=== PATIENT | female | born 1965 | race Caucasian/White ===

== ENCOUNTER 2016-07-29 17:35 | Emergency (ER) | payer MEDICARE, MEDICAID ==
[2016-07-29 17:35] VITALS: BMI 23.6
[2016-07-29 17:44] VITALS: BP 129/85; PULSE 88; RESP 18; TEMP 97.8; O2SAT 100
--- NOTE | 2016-07-29 18:22 | C.PDOC ---
History Of Present Illness 51 y/o female presents to the ED with complains of itchy red bumps diffusely to bilateral arms, legs and face since sleeping at her niece's home 2 days ago. Pt denies fever, vomiting, diarrhea, chest pain, SOB or any other complaints. Denies recent travel. Time Seen by Provider: 07/29/16 17:47 Chief Complaint (Nursing): Abnormal Skin Integrity History Per: Patient History/Exam Limitations: no limitations Onset/Duration Of Symptoms: Days Current Symptoms Are (Timing): Still Present Quality Of Symptoms: Itching Severity: Moderate Recent travel outside of the [place]: No Past Medical History Reviewed: Historical Data, Nursing Documentation, Vital Signs Vital Signs: Last Vital Signs Temp 97.8 F 07/29/16 17:41 Pulse 88 07/29/16 17:41 Resp 18 07/29/16 18:31 BP 129/85 07/29/16 17:41 Pulse Ox 100 07/29/16 20:04 - Medical History PMH: Diabetes, HIV Family History: States: Unknown Family Hx - Social History Hx Tobacco Use: No Hx Alcohol Use: No Hx Substance Use: Yes (occasionally) - Immunization History Hx Tetanus Toxoid Vaccination: No Hx Influenza Vaccination: Yes Hx Pneumococcal Vaccination: No Review Of Systems Except As Marked, All Systems Reviewed And Found Negative. Constitutional: Negative for: Fever Cardiovascular: Negative for: Chest Pain Respiratory: Negative for: Shortness of Breath Gastrointestinal: Negative for: Vomiting, Diarrhea Skin: Positive for: Rash (bilteral arms, legs and face) Physical Exam - Physical Exam Appears: Non-toxic, No Acute Distress Skin: Warm, Dry, Rash (erythematous papules with excoriations to bilateral arms and legs, no evidence of cellulitis) Head: Atraumatic, Normacephalic Eye(s): bilateral: Normal Inspection Nose: Normal Oral Mucosa: Moist Throat: Normal, No Erythema Neck: Normal ROM, Supple Chest: Symmetrical Cardiovascular: Rhythm Regular, No Murmur Respiratory: Normal Breath Sounds, No Rales, No Rhonchi, No Wheezing Extremity: Normal ROM, No Swelling Extremity: Bilateral: Atraumatic Neurological/Psych: Oriented x3, Normal Speech, Normal Motor Gait: Steady ED Course And Treatment O2 Sat by Pulse Oximetry: 100 (on room air) Pulse Ox Interpretation: Normal Medical Decision Making Medical Decision Making: The rash looks like insect bites with no evidence of cellulitis. Disposition - Disposition Referrals: [facility] [Outside] Disposition: HOME/ ROUTINE Disposition Time: 18:22 Condition: GOOD Additional Instructions: Follow up with the medical doctor within 1-2 days. Return of worsened. 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 - Scribe Statement The provider has reviewed the documentation as recorded by the Yana Patrick All medical record entries made by the Yana were at my direction and personally dictated by me. I have reviewed the chart and agree that the record accurately reflects my personal performance of the history, physical exam, medical decision making, and the department course for this patient. I have also personally directed, reviewed, and agree with the discharge instructions and disposition.
== END 2016-07-29 18:31 | disposition home or self-care (01) ==
LOC: C.ER 17:35
DX: S40.862A Insect bite (nonvenomous) of left upper arm, initial encounter (principal); S40.861A Insect bite (nonvenomous) of right upper arm, initial encounter; S80.862A Insect bite (nonvenomous), left lower leg, initial encounter; S80.861A Insect bite (nonvenomous), right lower leg, initial encounter; W57.XXXA Bitten or stung by nonvenomous insect and other nonvenomous arthropods, initial encounter; Y92.009 Unspecified place in unspecified non-institutional (private) residence as the place of occurrence of the external cause

== ENCOUNTER 2016-08-28 21:26 | Emergency (ER) | payer MEDICAID, MEDICARE ==
[2016-08-28 21:27] VITALS: BMI 23.6
--- NOTE | 2016-08-28 22:18 | C.PDOC ---
History Of Present Illness Patient presents to the ER with a complaint of myalgias, sore throat and a fever. Patient notes she recently began going to the gym again. Denies nausea, vomiting and diarrhea. Time Seen by Provider: 08/28/16 22:18 Chief Complaint (Nursing): Flu-like Symptoms History Per: Patient History/Exam Limitations: no limitations Onset/Duration Of Symptoms: Days Current Symptoms Are (Timing): Still Present Location Of Pain: Throat (Sore), Diffuse Myalgias Sick Contacts (Context): None Associated Symptoms: Fever, Sore Throat, Myalgias. denies: Nausea, Vomiting, Diarrhea Ear Symptoms: Bilateral: None Recent travel outside of the [place]: No Past Medical History Reviewed: Historical Data, Nursing Documentation, Vital Signs Vital Signs: Last Vital Signs Temp 98.2 F 08/29/16 02:18 Pulse 65 08/29/16 02:18 Resp 20 08/29/16 02:18 BP 120/75 08/29/16 02:18 Pulse Ox 98 08/29/16 02:18 - Medical History PMH: Anemia (FE DEFFICIENCY), Depression, Diabetes, HIV Surgical History: No Surg Hx Family History: States: No Known Family Hx - Social History Hx Tobacco Use: No Hx Alcohol Use: No Hx Substance Use: Yes (occasionally) - Immunization History Hx Tetanus Toxoid Vaccination: No Hx Influenza Vaccination: Yes Hx Pneumococcal Vaccination: No Review Of Systems Constitutional: Positive for: Fever ENT: Positive for: Throat Pain Gastrointestinal: Negative for: Nausea, Vomiting, Diarrhea Musculoskeletal: Positive for: Other (Diffuse Myalgias) Skin: Negative for: Rash, Lesions, Jaundice Neurological: Negative for: Weakness Psych: Negative for: Anxiety Physical Exam - Physical Exam Appears: Non-toxic Skin: Warm, Dry Eye(s): bilateral: Normal Inspection Ear(s): Bilateral: Normal Oral Mucosa: Moist Throat: Normal, No Erythema, No Exudate Neck: Supple Chest: Symmetrical, No Tenderness Cardiovascular: Rhythm Regular, No Murmur Respiratory: No Rales, No Rhonchi, No Wheezing Gastrointestinal/Abdominal: Soft, No Tenderness Back: Normal Inspection Extremity: Normal ROM Extremity: Bilateral: Atraumatic, Normal Color And Temperature Neurological/Psych: Oriented x3, Normal Speech, Normal Cognition Gait: Steady ED Course And Treatment - Laboratory Results Result Diagrams: 08/28/16 23:07 08/28/16 23:07 O2 Sat by Pulse Oximetry: 97 (Room air) Pulse Ox Interpretation: Normal Progress Note: Blood work and urinalysis ordered. Toradol and IV fluids administered. Reevaluation Time: 03:00 Reassessment Condition: Improved Disposition Counseled Patient/Family Regarding: Studies Performed, Diagnosis, Need For Followup, Rx Given - Disposition Referrals: [facility] [Outside] [employer] [facility] [Outside] Disposition: HOME/ ROUTINE Disposition Time: 22:18 Condition: FAIR Prescriptions: Nitrofurantoin Macrocrystals [Macrobid] 1 cap PO BID #14 cap Instructions: Urinary Tract Infection in Women (DC) - Clinical Impression Clinical Impression: UTI (lower urinary tract infection) - Scribe Statement The provider has reviewed the documentation as recorded by the Scribe Jose Carlos Joseph All medical record entries made by the Scribe were at my direction and personally dictated by me. I have reviewed the chart and agree that the record accurately reflects my personal performance of the history, physical exam, medical decision making, and the department course for this patient. I have also personally directed, reviewed, and agree with the discharge instructions and disposition.
[2016-08-28] MEDS ORDERED: Sodium Chloride 0.9% 1,000 ML IV ONE (22:33)
[2016-08-28 23:10] LABS: BASO # 0.1 K/uL (0.0-0.2); BASO % 2.4 % (0.0-2.0); EOS % 0.6 % (0.0-4.0); HEMATOCRIT 32.1 % (34.0-47.0); LYMPH % 57.4 % (20.0-40.0); MEAN CELL VOLUME 80.1 fL (81.0-99.0); MEAN CORPUSCULAR HEMOGLOBIN 25.7 pg (27.0-31.0); MEAN PLATELET VOLUME 8.3 fL (7.2-11.7); MONO # 0.5 K/uL (0.0-0.8); MONO % 14.4 % (0.0-10.0); NRBC % 0.1 % (0.0-2.0); RED CELL DISTRIBUTION WIDTH 16.3 % (11.5-14.5); WHITE BLOOD COUNT 3.4 K/uL (4.8-10.8)
[2016-08-28 23:24] LABS: CHLORIDE 98 mmol/L (98-107); SODIUM 131 mmol/L (132-148)
[2016-08-28 23:25] LABS: POTASSIUM 4.4 mmol/L (3.6-5.2)
[2016-08-28 23:27] LABS: ALB/GLOB RATIO 0.9 (1.0-2.1); ALKALINE PHOSPHATASE 97 U/L (38-126); ALT/SGPT 17 U/L (9-52); AST/SGOT 26 U/L (14-36); BILIRUBIN,TOTAL 0.5 mg/dL (0.2-1.3); BLOOD UREA NITROGEN 18 mg/dL (7-17); CALCIUM 8.1 mg/dl (8.6-10.4); CARBON DIOXIDE 23 mmol/L (22-30); GFR AFRICAN-AMERICAN 57; GLUCOSE,RANDOM 289 mg/dL (65-105); TOTAL PROTEIN 7.3 g/dL (6.3-8.3)
[2016-08-28 23:37] LABS: RBC URINE 7 /hpf (0-3); URINE BACTERIA MOD (<OCC); URINE BILIRUBIN NEGATIVE (NEGATIVE); URINE BLOOD 3+ (NEGATIVE); URINE COLOR Yellow (YELLOW); URINE GLUCOSE (UA) 3+ mg/dL (Normal); URINE KETONE NEGATIVE (NEGATIVE); URINE PROTEIN 1+ mg/dL (NEGATIVE); URINE UROBILINOGEN NORMAL mg/dL (0.2-1.0); WBC URINE 36 /hpf (0-5)
[2016-08-28 23:38] LABS: URINE LEUKOCYTE ESTERASE 1+ Leu/uL (Negative)
[2016-08-28] MEDS ORDERED: cefTRIAXone IV 1 gm in Dextros 50 ML IVPB ONE (23:55)
[2016-08-29 02:18] VITALS: BP 120/75; PULSE 65; RESP 20; TEMP 98.2
[2016-08-29 03:02] VITALS: O2SAT 97
== END 2016-08-29 03:05 | disposition home or self-care (01) ==
LOC: C.ER 21:26
DX: N39.0 Urinary tract infection, site not specified (principal)
CPT/HCPCS: 80053; 81001; 82009; 84703; 85025; 96361; 96365; 96375; 99284; J0696; J1885; J7040

== ENCOUNTER 2016-12-08 17:50 | Inpatient (IN) | payer MEDICARE ==
[2016-12-08 17:50] VITALS: BMI 23.6
[2016-12-08 18:58] LABS: BASO # 0.1 K/uL (0.0-0.2); BASO % 1.3 % (0.0-2.0); EOS # 0.1 K/uL (0.0-0.7); EOS % 1.3 % (0.0-4.0); HEMATOCRIT 18.9 % (34.0-47.0); LYMPH # 1.6 K/uL (1.0-4.3); LYMPH % 36.1 % (20.0-40.0); MEAN CORPUSCULAR HEMOGLOBIN 18.4 pg (27.0-31.0); MEAN CORPUSCULAR HGB CONC 28.3 g/dL (33.0-37.0); MEAN PLATELET VOLUME 7.6 fL (7.2-11.7); MONO # 0.5 K/uL (0.0-0.8); MONO % 11.7 % (0.0-10.0); NRBC % 0.5 % (0.0-2.0); WHITE BLOOD COUNT 4.4 K/uL (4.8-10.8)
[2016-12-08 19:10] LABS: ALB/GLOB RATIO 0.8 (1.0-2.1); ALKALINE PHOSPHATASE 95 U/L (38-126); ALT/SGPT 27 U/L (9-52); AST/SGOT 27 U/L (14-36); BILIRUBIN,TOTAL 0.5 mg/dL (0.2-1.3); BLOOD UREA NITROGEN 11 mg/dL (7-17); CALCIUM 8.6 mg/dl (8.6-10.4); CARBON DIOXIDE 20 mmol/L (22-30); CHLORIDE 97 mmol/L (98-107); GFR AFRICAN-AMERICAN > 60; GLUCOSE,RANDOM 326 mg/dL (65-105); POTASSIUM 3.9 mmol/L (3.6-5.2); SODIUM 131 mmol/L (132-148); TOTAL PROTEIN 6.9 g/dL (6.3-8.3)
[2016-12-08] MEDS ORDERED: Sodium Chloride 0.9% 1,000 ML IV ONE (19:11)
--- NOTE | 2016-12-08 19:24 | C.PDOC ---
History Of Present Illness A 51 y/o female with a hx of chronic anemia presents to the ED from the clinic for low blood count. Patient complains of dizziness, weakness, and vaginal bleeding for the past 8 days. Denies any pain at this time. Chief Complaint (Nursing): Abnormal Labs History Per: Patient History/Exam Limitations: no limitations Onset/Duration Of Symptoms: Days (dizziness, weakness, and vaginal bleeding for 8 days. ) Current Symptoms Are (Timing): Still Present Recent travel outside of the [place]: No Past Medical History Vital Signs: Last Vital Signs Temp 98.8 F 12/08/16 21:19 Pulse 91 H 12/08/16 21:19 Resp 20 12/08/16 17:58 BP 138/87 12/08/16 21:19 Pulse Ox 100 12/08/16 21:19 - Medical History PMH: Anemia (FE DEFFICIENCY), Depression, Diabetes, HIV Surgical History: No Surg Hx Family History: States: Unknown Family Hx - Social History Hx Tobacco Use: No Hx Alcohol Use: No Hx Substance Use: Yes (occasionally) - Immunization History Hx Tetanus Toxoid Vaccination: No Hx Influenza Vaccination: Yes Hx Pneumococcal Vaccination: No Review Of Systems Constitutional: Positive for: Weakness. Negative for: Fever Cardiovascular: Negative for: Chest Pain, Palpitations Respiratory: Negative for: Shortness of Breath Gastrointestinal: Negative for: Nausea, Vomiting, Diarrhea Genitourinary: Positive for: Vaginal Bleeding Neurological: Positive for: Weakness, Dizziness Physical Exam - Physical Exam Appears: Well, Non-toxic Skin: Normal Color, Warm, Dry Head: Atraumatic, Normacephalic Eye(s): bilateral: Conjunctiva Pale (slightly) Oral Mucosa: Moist Chest: Symmetrical Cardiovascular: Rhythm Regular, No Murmur Respiratory: Normal Breath Sounds, No Rales, No Rhonchi, No Wheezing Gastrointestinal/Abdominal: Soft, No Tenderness Extremity: Normal ROM (x4) Neurological/Psych: Oriented x3 (alert and oriented x3) ED Course And Treatment - Laboratory Results Result Diagrams: 12/08/16 18:55 12/08/16 18:55 ECG: Interpreted By Me, Viewed By Me ECG Rhythm: Sinus Rhythm ECG Interpretation: Normal, No Acute Changes Interpretation Of ECG: NSR, normal tracings Rate From EC O2 Sat by Pulse Oximetry: 100 (Room air) Pulse Ox Interpretation: Normal Progress Note: Blood work, UA/Urine culture, EKG, and CXR ordered; IV fluids and insulin administered. Disposition Discussed With Dr.: Adams Eddy Doctor Will See Patient In The: Hospital Counseled Patient/Family Regarding: Diagnosis - Disposition Disposition: HOSPITALIZED Disposition Time: 20:19 Condition: STABLE - POA Present On Arrival: None - Clinical Impression Clinical Impression: Severe anemia, Diabetes mellitus - Scribe Statement The provider has reviewed the documentation as recorded by the Scribajit Brandon All medical record entries made by the Phillipibajit were at my direction and personally dictated by me. I have reviewed the chart and agree that the record accurately reflects my personal performance of the history, physical exam, medical decision making, and the department course for this patient. I have also personally directed, reviewed, and agree with the discharge instructions and disposition.
[2016-12-08] MEDS ORDERED: (Novolin R) Insulin Human Regular 100 units/ml vial SC ONE (19:26)
[2016-12-08] MEDS ORDERED: (Novolin R) Insulin Human Regular 100 units/ml vial ONE (19:48)
[2016-12-08] MEDS ORDERED: Sodium Chloride 0.9% 1,000 ML ONE (19:48)
[2016-12-08 20:26] LABS: IRON 30 ug/dL (37-170)
[2016-12-08 20:42] LABS: RBC URINE 7 /hpf (0-3); URINE BILIRUBIN NEGATIVE (NEGATIVE); URINE BLOOD 1+ (NEGATIVE); URINE COLOR Yellow (YELLOW); URINE GLUCOSE (UA) 3+ mg/dL (Normal); URINE KETONE NEGATIVE (NEGATIVE); URINE LEUKOCYTE ESTERASE 1+ Leu/uL (Negative); URINE PROTEIN NEGATIVE (NEGATIVE); URINE UROBILINOGEN NORMAL mg/dL (0.2-1.0); WBC URINE 8 /hpf (0-5)
[2016-12-08 20:43] LABS: URINE BACTERIA MOD (<OCC)
[2016-12-08 21:09] LABS: FOLATE 19.8 ng/mL
[2016-12-09] MEDS ORDERED: Insulin Detemir 100 units/ml Vial (Levemir) SC ONE (00:30)
--- NOTE | 2016-12-09 01:50 | CP.PCM.HP ---
<Deb Martin - Last Filed: 12/09/16 01:42> History of Present Illness - History of Present Illness History of Present Illness: HPI: Patient is a 51F with PMH HIV, DM, and iron deficiency anemia who presents to the ED for blood transfusion. Patient says she was at the clinic for a PAP smear and was told that she was severely anemic and needed to go to the ED for transfusion. Patient says her last menstrual period lasted longer than usual and was 8 days of heavy bleeding that ended 2 days ago. Patient says her periods are usually every 1.5 months, lasting 5-6 days, without heavy flow. She states that she has had some vaginal discharge but this is normal for her and denies change in color or odor. Patient says she has been feeling tired and has recently gained some weight. Patient also c/o dysuria but no frequency or urgency. Patient denies F/C, CP/SOB, Melena/Hematochezia, flank pain, AP/N/V/D/ C. 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 Present on Admission - Present on Admission Any Indicators Present on Admission: No Review of Systems - Review of Systems All systems: reviewed and no additional remarkable complaints except (As per HPI ) - Hematologic/Lymphatic Additional comments: As per HPI Past Patient History - Infectious Disease Hx of Infectious Diseases: None - Tetanus Immunizations Tetanus Immunization: Unknown - Past Social History Smoking Status: Former Smoker - ENDOCRINE/METABOLIC Hx Diabetes Mellitus Type 2: Yes - HEMATOLOGICAL/ONCOLOGICAL Hx Anemia: Yes (FE DEFFICIENCY) Hx Human Immunodeficiency Virus (HIV): Yes - PSYCHIATRIC Hx Depression: Yes Hx Substance Use: Yes (occasionally) - SURGICAL HISTORY Hx Surgeries: Yes Hx Tubal Ligation: Yes (1990) - ANESTHESIA Hx Anesthesia: Yes Hx Anesthesia Reactions: No Hx Malignant Hyperthermia: No Meds Allergies/Adverse Reactions: Allergies Allergy/AdvReac Type Severity Reaction Status Date / Time sulfamethoxazole Allergy Verified 07/29/16 17:39 [From Bactrim] trimethoprim [From Bactrim] Allergy Verified 07/29/16 17:39 Physical Exam - Constitutional Appears: Non-toxic, No Acute Distress - Head Exam Head Exam: NORMAL INSPECTION - Eye Exam Eye Exam: EOMI - ENT Exam ENT Exam: Mucous Membranes Moist - Respiratory Exam Respiratory Exam: Clear to Auscultation Bilateral, NORMAL BREATHING PATTERN - Cardiovascular Exam Cardiovascular Exam: REGULAR RHYTHM, +S1, +S2 - GI/Abdominal Exam GI & Abdominal Exam: Normal Bowel Sounds, Soft. absent: Distended, Tenderness - Exam Speculum exam: NORMAL SPECULUM EXAM, Vaginal Discharge (minimal white discharge without foul odor ). absent: Erythema Bimanual exam: NORMAL BIMANUAL EXAM. absent: Adenexal Mass, Cervical Motion Tendernes - Extremities Exam Extremities exam: Positive for: normal inspection, pedal pulses present. Negative for: pedal edema, tenderness - Neurological Exam Neurological exam: Alert, Oriented x3 - Psychiatric Exam Psychiatric exam: Normal Affect, Normal Mood - Skin Skin Exam: Dry, Intact, Warm Results - Vital Signs Recent Vital Signs: Last Vital Signs Temp 98.9 F 12/09/16 01:03 Pulse 87 12/09/16 01:03 Resp 20 12/09/16 01:03 BP 129/78 12/09/16 01:03 Pulse Ox 98 12/09/16 00:00 - Labs Result Diagrams: 12/08/16 18:55 12/08/16 18:55 Labs: Laboratory Results - last 24 hr 12/08/16 20:29 Urine Color Yellow Urine Clarity Hazy Urine pH 5.0 Ur Specific [place] 1.012 Urine Protein Negative Urine Glucose (UA) 3+ H Urine Ketones Negative Urine Blood 1+ H Urine Nitrate Negative Urine Bilirubin Negative Urine Urobilinogen Normal Ur Leukocyte Esterase 1+ H Urine WBC (Auto) 8 H Urine RBC (Auto) 7 H Ur Squamous Epith Cells < 1 Urine Bacteria Mod H Assessment & Plan - Assessment and Plan (Free Text) Assessment: Anemia * H&H: 5.3 & 18.9 * Iron studies: iron 30, TIBC 362, % Sat 8 * Tranfusion x2 * F/U stool occult blood * Consult GI (Malik) - recs appreciated * Ferrous sulfate 325 mg PO QD * ECG & CXR Menorrhagia * Consult ObGyn (Justin) - recs appreciated * F/U pelvic US * F/U urine HCG Dysuria * F/U UA and culture Hx DM * Levemir 15 U once * Novalog 70/30 15 U BIDAC Hx HIV * F/U home meds * 10/12/15 CD4: 224 Prophylaxis * Protonix 40 mg PO QD * SCDs <Adams Eddy P - Last Filed: 12/09/16 08:08> Results - Vital Signs Recent Vital Signs: Last Vital Signs Temp 98.2 F 12/09/16 04:50 Pulse 86 12/09/16 04:50 Resp 20 12/09/16 04:50 BP 141/83 12/09/16 04:50 Pulse Ox 98 12/09/16 00:00 - Labs Result Diagrams: 12/09/16 07:37 12/09/16 07:37 Labs: Laboratory Results - last 24 hr 12/08/16 12/09/16 12/09/16 20:29 01:24 04:30 WBC RBC Hgb Hct MCV MCH MCHC RDW Plt Count MPV Sodium Potassium Chloride Carbon Dioxide Anion Gap BUN Creatinine Est GFR ( Amer) Est GFR (Non-Af Amer) POC Glucose (mg/dL) 336 H Random Glucose Calcium Phosphorus Magnesium Total Bilirubin AST ALT Alkaline Phosphatase Total Protein Albumin Globulin Albumin/Globulin Ratio Urine Color Yellow Urine Clarity Hazy Urine pH 5.0 Ur Specific [place] 1.012 Urine Protein Negative Urine Glucose (UA) 3+ H Urine Ketones Negative Urine Blood 1+ H Urine Nitrate Negative Urine Bilirubin Negative Urine Urobilinogen Normal Ur Leukocyte Esterase 1+ H Urine WBC (Auto) 8 H Urine RBC (Auto) 7 H Ur Squamous Epith Cells < 1 Urine Bacteria Mod H Urine HCG, Qual Negative 12/09/16 12/09/16 12/09/16 07:13 07:37 07:37 WBC 5.5 RBC 3.49 L Hgb 8.3 L D Hct 26.8 L MCV 76.6 L D MCH 23.8 L MCHC 31.1 L RDW 25.6 H Plt Count 310 MPV 7.8 Sodium 135 Potassium 3.8 Chloride 99 Carbon Dioxide 24 Anion Gap 16 BUN 10 Creatinine 0.8 Est GFR ( Amer) > 60 Est GFR (Non-Af Amer) > 60 POC Glucose (mg/dL) 213 H Random Glucose 179 H Calcium 9.1 Phosphorus 3.5 Magnesium 1.6 Total Bilirubin 0.7 AST 23 ALT 18 Alkaline Phosphatase 103 Total Protein 7.2 Albumin 3.1 L Globulin 4.1 H Albumin/Globulin Ratio 0.8 L Urine Color Urine Clarity Urine pH Ur Specific [place] Urine Protein Urine Glucose (UA) Urine Ketones Urine Blood Urine Nitrate Urine Bilirubin Urine Urobilinogen Ur Leukocyte Esterase Urine WBC (Auto) Urine RBC (Auto) Ur Squamous Epith Cells Urine Bacteria Urine HCG, Qual Attending/Attestation - Attestation I have personally seen and examined this patient.: Yes I have fully participated in the care of the patient.: Yes I have reviewed all pertinent clinical information: Yes Notes (Text): Iron deficiency anemia with symptoms of being tired, but not of acute loss, low MCV, suggest anemia of longer duration unlikely to be only from 1wk of menorrhagia, hence may need gi work up. H/o HIV, unknown CD4, on meds. Not well controlled type 2 dm on insulin. 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
--- NOTE | 2016-12-09 03:17 | CP.PCM.CON ---
History of Present Illness - History of Present Illness History of Present Illness: Called to see Pt currently for transfusion secondary to severe anemia. Review of Systems - Reproductive: Female Reproductive:Female: Heavy Menses, Abnormal Vaginal Bleeding - Menstruation Menstruation: Menses >/= 8 Days Past Patient History - Infectious Disease Hx of Infectious Diseases: None - Tetanus Immunizations Tetanus Immunization: Unknown - Past Medical History & Family History Past Medical History?: Yes - Past Social History Smoking Status: Former Smoker - CARDIAC Hx Cardiac Disorders: No - PULMONARY Hx Respiratory Disorders: Yes Hx Asthma: Yes Hx Bronchitis: No Hx Chronic Obstructive Pulmonary Disease (COPD): No Hx Emphysema: No Hx Lung Cancer: No Hx Pneumonia: No Hx Pulmonary Edema: No Hx Pulmonary Embolism: No Hx Respiratory Aspiration: No Hx Respiratory Tract Infection: No Hx Sleep Apnea: No Hx Tuberculosis: No - NEUROLOGICAL Hx Neurological Disorder: No - HEENT Hx HEENT Problems: No - RENAL Hx Chronic Kidney Disease: No - ENDOCRINE/METABOLIC Hx Endocrine Disorders: Yes Hx Adrenal Cancer: No Hx Diabetes Insipidus: No Hx Diabetes Mellitus Type 1: No Hx Diabetes Mellitus Type 2: Yes Hx Hyperthyroidism: No Hx Hypothyroidism: No Hx Systemic Lupus Erythematosus: No - HEMATOLOGICAL/ONCOLOGICAL Hx Blood Disorders: Yes Hx AIDS: No Hx Anemia: Yes (FE DEFFICIENCY) Hx Blood Transfusions: Yes Hx Blood Transfusion Reaction: No Hx Bruising: No Hx Cancer: No Hx Chemotherapy: No Hx Cirrhosis: No Hx Gum Bleeding: No Hx Hemophilia: No Hx Hepatitis A: No Hx Hepatitis B: No Hx Hepatitis C: No Hx Human Immunodeficiency Virus (HIV): Yes Hx Leukemia: No Hx Metastesis: No Hx Shingles: No Hx Sickle Cell Disease: No Hx Unexplained Bleeding: No Hx von Willebrand's Disease: No - INTEGUMENTARY Hx Dermatological Problems: No - MUSCULOSKELETAL/RHEUMATOLOGICAL Hx Musculoskeletal Disorders: No - GASTROINTESTINAL Hx Gastrointestinal Disorders: No - GENITOURINARY/GYNECOLOGICAL Hx Genitourinary Disorders: Yes Hx Bladder Cancer: No Hx Bladder Stone: No Hx Cervical Cancer: No Hx Hematuria: No Hx Incontinence: No Hx Ovarian Cancer: No Hx Postmenopausal Bleeding: No Hx Reproductive Disorders: No Hx Sexually Transmitted Disorders: Yes (HIV) Hx Uterine Cancer: No Hx Urinary Tract Infection: Yes - PSYCHIATRIC Hx Psychophysiologic Disorder: Yes Hx Anxiety: No Hx Bipolar Disorder: No Hx Depression: Yes Hx Emotional Abuse: No Hx Hallucinations: No Hx Panic Symptoms: No Hx Paranoia: No Hx Post Traumatic Stress Disorder: No Hx Psychosis: No Hx Physical Abuse: No Hx Schizophrenia: No Hx Sexual Abuse: No Hx Substance Use: Yes (occasionally) - SURGICAL HISTORY Hx Surgeries: Yes Hx Abdominal Aortic Aneurysm Repair: No Hx Amputation: No Hx Angiogram: No Hx Angioplasty: No Hx Appendectomy: No Hx Arteriovenous Shunt: No Hx Arthroscopy: No Hx Bile Duct Stent: No Hx Breast Biopsy: No Hx Cataract Extraction: No Hx Cardiac Catheterization: No Hx Carotid Endarterectomy: No Hx Section: No Hx Cholecystectomy: No Hx Coronary Artery Bypass Graft: No Hx Coronary Stent: No Hx Dilation and Curettage: No Hx Eye Surgery: No Hx Femoral-Popliteal Bypass Graft: No Hx Gastric Bypass Surgery: No Hx Herniorrhaphy: No Hx Hysterectomy: No Hx Joint Replacement: No Hx Kidney Transplant: No Hx Liver Transplant: No Hx Mastectomy: No Hx Musculoskeletal Surgery: No Hx Open Heart Surgery: No Hx Open Reduction Internal Fixation: No Hx Orthopedic Surgery: No Hx Parathyroidectomy: No Hx Penile Implant: No Hx Pulmonary Surgery: No Hx Splenectomy: No Hx Thyroidectomy: No Hx Tonsillectomy: No Hx Tubal Ligation: Yes (1990) Hx Valve Replacement: No Hx Vascular Surgery: No Hx Vascular Access Device: No - ANESTHESIA Hx Anesthesia: Yes Hx Anesthesia Reactions: No Hx Malignant Hyperthermia: No Has any member of the family had a problem w/ anesthesia?: No Meds Allergies/Adverse Reactions: Allergies Allergy/AdvReac Type Severity Reaction Status Date / Time sulfamethoxazole Allergy Verified 07/29/16 17:39 [From Bactrim] trimethoprim [From Bactrim] Allergy Verified 07/29/16 17:39 - Medications Medications: Current Medications Ferrous Sulfate (Feosol) 325 mg PO DAILY STANISLAW Sodium Chloride (Sodium Chloride 0.9%) 1,000 mls @ 100 mls/hr IV .Q10H ONE Stop: 12/09/16 05:10 Last Admin: 12/08/16 20:10 Dose: 100 mls/hr Insulin Aspart (Novolog Mix 70/30 (70/30 Units/Ml)) 8 units SC BIDAC STANISLAW Pantoprazole Sodium (Protonix Ec Tab) 40 mg PO DAILY STANISLAW Results - Vital Signs Recent Vital Signs: Last Vital Signs Temp 98.3 F 12/09/16 02:38 Pulse 82 12/09/16 02:38 Resp 20 12/09/16 02:38 BP 129/77 12/09/16 02:38 Pulse Ox 98 12/09/16 00:00 - Labs Result Diagrams: 12/08/16 18:55 12/08/16 18:55 Labs: Laboratory Results - last 24 hr 12/08/16 12/09/16 20:29 01:24 POC Glucose (mg/dL) 336 H Urine Color Yellow Urine Clarity Hazy Urine pH 5.0 Ur Specific [place] 1.012 Urine Protein Negative Urine Glucose (UA) 3+ H Urine Ketones Negative Urine Blood 1+ H Urine Nitrate Negative Urine Bilirubin Negative Urine Urobilinogen Normal Ur Leukocyte Esterase 1+ H Urine WBC (Auto) 8 H Urine RBC (Auto) 7 H Ur Squamous Epith Cells < 1 Urine Bacteria Mod H Assessment & Plan (1) Menorrhagia Status: Acute (2) Severe anemia Status: Acute - Assessment and Plan (Free Text) Plan: Will await the results of pelvic ultrasound. Recommend endometrial biopsy upon discharge and stabilization
[2016-12-09 07:51] LABS: HEMATOCRIT 26.8 % (34.0-47.0); MEAN CORPUSCULAR HEMOGLOBIN 23.8 pg (27.0-31.0); MEAN CORPUSCULAR HGB CONC 31.1 g/dL (33.0-37.0); MEAN PLATELET VOLUME 7.8 fL (7.2-11.7); RED CELL DISTRIBUTION WIDTH 25.6 % (11.5-14.5); WHITE BLOOD COUNT 5.5 K/uL (4.8-10.8)
[2016-12-09 07:55] LABS: ALB/GLOB RATIO 0.8 (1.0-2.1); ALKALINE PHOSPHATASE 103 U/L (38-126); ALT/SGPT 18 U/L (9-52); AST/SGOT 23 U/L (14-36); BILIRUBIN,TOTAL 0.7 mg/dL (0.2-1.3); BLOOD UREA NITROGEN 10 mg/dL (7-17); CALCIUM 9.1 mg/dl (8.6-10.4); CARBON DIOXIDE 24 mmol/L (22-30); CHLORIDE 99 mmol/L (98-107); GFR AFRICAN-AMERICAN > 60; GLUCOSE,RANDOM 179 mg/dL (65-105); MAGNESIUM 1.6 mg/dL (1.6-2.3); PHOSPHOROUS 3.5 mg/dL (2.5-4.5); POTASSIUM 3.8 mmol/L (3.6-5.2); SODIUM 135 mmol/L (132-148); TOTAL PROTEIN 7.2 g/dL (6.3-8.3)
[2016-12-09 07:56] LABS: MEAN CELL VOLUME 76.6 fL (81.0-99.0)
[2016-12-09] MEDS: (Novolog Mix 70/30) Insulin Aspart/Insulin Aspar 100 units/ml SC SCH ×2 (08:40→16:56)
[2016-12-09] MEDS: Pantoprazole 40 mg EC Tab PO SCH (09:27)
--- NOTE | 2016-12-09 10:42 | US ---
HISTORY: menorrhagia COMPARISON: None available. TECHNIQUE: Transabdominal and transvaginal FINDINGS: UTERUS: Measures 10.3 x 5.4 x 7.4 cm. Normal in size and appearance. No fibroid or other mass lesion seen. ENDOMETRIUM: Measures 4 mm in diameter. Unremarkable. CERVIX: No cervical abnormality identified. RIGHT OVARY: Measures 3.3 x 2.7 x 2.8 cm. No solid mass. Normal flow. Simple right ovarian cyst, 1.4 x 1.5 x 1.9 cm. Please correlate with menopausal status. LEFT OVARY: Measures 2.9 x 1.2 x 2.9 cm. No solid mass. Normal flow. FREE FLUID: No significant free fluid noted. OTHER FINDINGS: None. IMPRESSION: Unremarkable endometrium. 1.9 cm right ovarian cyst. Likely physiologic. Please correlate with menopausal status.
--- NOTE | 2016-12-09 11:12 | RAD ---
HISTORY: GI Bleeding COMPARISON: No prior. TECHNIQUE: Chest PA and lateral FINDINGS: LUNGS: No active pulmonary disease. PLEURA: No significant pleural effusion identified. No pneumothorax apparent. CARDIOVASCULAR: Normal. OSSEOUS STRUCTURES: No significant abnormalities. VISUALIZED UPPER ABDOMEN: Normal. OTHER FINDINGS: None. IMPRESSION: No active disease.
--- NOTE | 2016-12-09 15:00 | CP.PCM.PN ---
<Chencho Sheikh - Last Filed: 12/09/16 16:42> Subjective - Date & Time of Evaluation Date of Evaluation: 12/09/16 Time of Evaluation: 14:57 - Subjective Subjective: PGY1 Note for Dr. Desir HPI: Patient seen and examined at bedside. Doing well with no complaints at this time. Feels much better after the transfusion. No longer feels dizzy. States she does not think she is menopausal. 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 Does not have any chest pain or SOB. Denies N/V/D/F Objective - Vital Signs/Intake and Output Vital Signs (last 24 hours): Temp Pulse Resp BP Pulse Ox 98.6 F 80 20 147/81 95 12/09/16 08:30 12/09/16 08:30 12/09/16 08:30 12/09/16 08:30 12/09/16 08:30 Intake and Output: 12/09/16 12/09/16 06:59 18:59 Intake Total 975 Output Total 0 Balance 975 - Medications Medications: Current Medications Ferrous Sulfate (Feosol) 325 mg PO DAILY [facility] Last Admin: 12/09/16 09:27 Dose: 325 mg Insulin Aspart (Novolog Mix 70/30 (70/30 Units/Ml)) 8 units SC BIDAC [facility] Last Admin: 12/09/16 08:40 Dose: 8 units Insulin Detemir (Levemir) 15 unit SC HS [facility] Pantoprazole Sodium (Protonix Ec Tab) 40 mg PO DAILY [facility] Last Admin: 12/09/16 09:27 Dose: 40 mg - Labs Labs: 12/09/16 07:37 12/09/16 07:37 PT 11.6 SECONDS (9.7-12.2) 12/08/16 19:39 INR 1.0 12/08/16 19:39 APTT 27 SECONDS (21-34) 12/08/16 19:39 - Constitutional Appears: Well, Non-toxic, No Acute Distress - Head Exam Head Exam: ATRAUMATIC, NORMAL INSPECTION, NORMOCEPHALIC - ENT Exam ENT Exam: Mucous Membranes Moist - Respiratory Exam Respiratory Exam: Clear to Ausculation Bilateral, NORMAL BREATHING PATTERN - Cardiovascular Exam Cardiovascular Exam: REGULAR RHYTHM - GI/Abdominal Exam GI & Abdominal Exam: Soft, Normal Bowel Sounds. absent: Distended, Tenderness - Extremities Exam Extremities Exam: absent: Joint Swelling, Tenderness - Neurological Exam Neurological Exam: Alert, Awake, Oriented x3 - Psychiatric Exam Psychiatric exam: Normal Affect, Normal Mood - Skin Skin Exam: Dry, Intact, Normal Color, Warm Assessment and Plan - Assessment and Plan (Free Text) Assessment: Anemia * If Hgb remains stable tomorrow, will D/c home * Hgb 8.3 * Iron studies: iron 30, TIBC 362, % Sat 8 * Tranfusion x2 * Stool occult blood - Negative * Consult GI (Malik) - F/U Reccs * Ferrous sulfate 325 mg PO QD Menorrhagia * Consult ObGyn ([facility]) * Endometrial bx as outpatient * pelvic US - unremarkable * urine HCG = negative UTI * Gram negative geoff * Rochepin 1g IM QD Hx DM * Levemir 15 U once * Novalog 70/30 15 U BIDAC Hx HIV * * 10/12/15 CD4: 224 Prophylaxis * Protonix 40 mg PO QD * Nicole <Balta Desir - Last Filed: 12/09/16 18:47> Objective - Vital Signs/Intake and Output Vital Signs (last 24 hours): Temp Pulse Resp BP Pulse Ox 98.4 F 79 20 139/85 97 12/09/16 15:00 12/09/16 15:00 12/09/16 15:00 12/09/16 15:00 12/09/16 15:00 Intake and Output: 12/09/16 12/09/16 06:59 18:59 Intake Total 975 500 Output Total 0 Balance 975 500 - Medications Medications: Current Medications Acetaminophen (Tylenol 325mg Tab) 650 mg PO Q6 PRN PRN Reason: Pain, moderate (4-7) Last Admin: 12/09/16 16:12 Dose: 650 mg Ferrous Sulfate (Feosol) 325 mg PO DAILY [facility] Last Admin: 12/09/16 09:27 Dose: 325 mg Insulin Aspart (Novolog Mix 70/30 (70/30 Units/Ml)) 8 units SC BIDAC [facility] Last Admin: 12/09/16 16:56 Dose: 8 units Insulin Detemir (Levemir) 15 unit SC HS [facility] Pantoprazole Sodium (Protonix Ec Tab) 40 mg PO DAILY [facility] Last Admin: 12/09/16 09:27 Dose: 40 mg - Labs Labs: 12/09/16 07:37 12/09/16 07:37 PT 11.6 SECONDS (9.7-12.2) 12/08/16 19:39 INR 1.0 12/08/16 19:39 APTT 27 SECONDS (21-34) 12/08/16 19:39 Attending/Attestation - Attestation I have personally seen and examined this patient.: Yes I have fully participated in the care of the patient.: Yes I have reviewed all pertinent clinical information, including history, physical exam and plan: Yes Notes (Text): 12/09/16 18:41 Medical attending: Patient was seen and examined by me, agree with the above note by registered medical assistant. The patient explains that her most recent menstrual period came at the normal time however this time it was excessive bleeding with notable clots she had to use multiple pads much more than usual She had 2 units of PRBCs given overnight, her hemoglobin is higher now. The patient reports that she feels significantly better than when she came in. She denies having any chest pain or shortness of breath at this moment. She also had a pelvic ultrasound, it did not show any acute findings. So at this time if her hemoglobin remained stable consider discharging the patient tomorrow but will have to see Thank you very much, Balta Desir
[2016-12-09] MEDS ORDERED: Insulin Detemir 100 units/ml Vial (Levemir) SC SCH (22:00)
[2016-12-10 00:45] VITALS: O2SAT 98
[2016-12-10] MEDS: (Novolog Mix 70/30) Insulin Aspart/Insulin Aspar 100 units/ml SC SCH (08:25)
[2016-12-10 08:37] VITALS: BP 144/91; PULSE 67; RESP 20; TEMP 98.2
[2016-12-10 08:38] LABS: BASO # 0.1 K/uL (0.0-0.2); BASO % 1.4 % (0.0-2.0); EOS # 0.2 K/uL (0.0-0.7); EOS % 3.6 % (0.0-4.0); HEMATOCRIT 28.9 % (34.0-47.0); LYMPH # 1.8 K/uL (1.0-4.3); LYMPH % 36.7 % (20.0-40.0); MEAN CORPUSCULAR HEMOGLOBIN 21.7 pg (27.0-31.0); MEAN CORPUSCULAR HGB CONC 30.3 g/dL (33.0-37.0); MEAN PLATELET VOLUME 8.1 fL (7.2-11.7); MONO # 0.4 K/uL (0.0-0.8); MONO % 8.8 % (0.0-10.0); NRBC % 0.3 % (0.0-2.0); RED CELL DISTRIBUTION WIDTH 25.2 % (11.5-14.5)
[2016-12-10 08:41] LABS: MEAN CELL VOLUME 71.5 fL (81.0-99.0)
[2016-12-10 08:45] LABS: CHLORIDE 101 mmol/L (98-107)
[2016-12-10 08:46] LABS: POTASSIUM 4.6 mmol/L (3.6-5.2); SODIUM 133 mmol/L (132-148)
[2016-12-10 08:48] LABS: ALB/GLOB RATIO 0.9 (1.0-2.1); BILIRUBIN,TOTAL 0.5 mg/dL (0.2-1.3); CARBON DIOXIDE 23 mmol/L (22-30); GFR AFRICAN-AMERICAN > 60; TOTAL PROTEIN 7.5 g/dL (6.3-8.3)
[2016-12-10 08:49] LABS: ALKALINE PHOSPHATASE 110 U/L (38-126); ALT/SGPT 21 U/L (9-52); AST/SGOT 24 U/L (14-36); BLOOD UREA NITROGEN 18 mg/dL (7-17); CALCIUM 8.6 mg/dl (8.6-10.4); GLUCOSE,RANDOM 326 mg/dL (65-105); MAGNESIUM 1.6 mg/dL (1.6-2.3); PHOSPHOROUS 3.4 mg/dL (2.5-4.5)
[2016-12-10] MEDS: Pantoprazole 40 mg EC Tab PO SCH (10:14)
[2016-12-10] MEDS ORDERED: (Novolin R) Insulin Human Regular 100 units/ml vial SC SCH (11:30)
--- NOTE | 2016-12-10 11:54 | CP.PCM.DIS ---
<Chencho Sheikh - Last Filed: 12/10/16 11:49> Provider - Provider Date of Admission: 12/08/16 20:20 Attending physician: Adams Eddy MD Primary care physician: Clinic Consults: Freelance Art Director: Justin Time Spent in preparation of Discharge (in minutes): 45 Hospital Course - Lab Results Lab Results: Micro Results 12/08/16 21:00 Urine Urine Culture - Preliminary Gram Negative Guzman Most Recent Lab Values WBC 5.0 K/uL (4.8-10.8) 12/10/16 08:30 RBC 4.05 Mil/uL (3.80-5.20) 12/10/16 08:30 Hgb 8.8 g/dL (11.0-16.0) L 12/10/16 08:30 Hct 28.9 % (34.0-47.0) L 12/10/16 08:30 MCV 71.5 fL (81.0-99.0) L D 12/10/16 08:30 MCH 21.7 pg (27.0-31.0) L 12/10/16 08:30 MCHC 30.3 g/dL (33.0-37.0) L 12/10/16 08:30 RDW 25.2 % (11.5-14.5) H 12/10/16 08:30 Plt Count 301 K/uL (130-400) 12/10/16 08:30 MPV 8.1 fL (7.2-11.7) 12/10/16 08:30 Neut % (Auto) 49.5 % (50.0-75.0) L 12/10/16 08:30 Lymph % (Auto) 36.7 % (20.0-40.0) 12/10/16 08:30 [place] % (Auto) 8.8 % (0.0-10.0) 12/10/16 08:30 Eos % (Auto) 3.6 % (0.0-4.0) 12/10/16 08:30 Baso % (Auto) 1.4 % (0.0-2.0) 12/10/16 08:30 Neut # 2.5 K/uL (1.8-7.0) 12/10/16 08:30 Lymph # 1.8 K/uL (1.0-4.3) 12/10/16 08:30 [place] # 0.4 K/uL (0.0-0.8) 12/10/16 08:30 Eos # 0.2 K/uL (0.0-0.7) 12/10/16 08:30 Baso # 0.1 K/uL (0.0-0.2) 12/10/16 08:30 Differential Comment 12/08/16 18:55 PT 11.6 SECONDS (9.7-12.2) 12/08/16 19:39 INR 1.0 12/08/16 19:39 APTT 27 SECONDS (21-34) 12/08/16 19:39 Sodium 133 mmol/L (132-148) 12/10/16 08:30 Potassium 4.6 mmol/L (3.6-5.2) 12/10/16 08:30 Chloride 101 mmol/L (98-107) 12/10/16 08:30 Carbon Dioxide 23 mmol/L (22-30) 12/10/16 08:30 Anion Gap 14 (10-20) 12/10/16 08:30 BUN 18 mg/dL (7-17) H 12/10/16 08:30 Creatinine 0.8 MG/DL (0.7-1.2) 12/10/16 08:30 Est GFR ( Amer) > 60 12/10/16 08:30 Est GFR (Non-Af Amer) > 60 12/10/16 08:30 POC Glucose (mg/dL) 302 mg/dL (65-110) H 12/10/16 11:18 Random Glucose 326 mg/dL (65-105) H 12/10/16 08:30 Calcium 8.6 mg/dl (8.6-10.4) 12/10/16 08:30 Phosphorus 3.4 mg/dL (2.5-4.5) 12/10/16 08:30 Magnesium 1.6 mg/dL (1.6-2.3) 12/10/16 08:30 Iron 30 ug/dL (37-170) L 12/08/16 20:08 TIBC 362 ug/dL (250-450) 12/08/16 20:08 % Saturation 8 (20-55) L 12/08/16 20:08 Total Bilirubin 0.5 mg/dL (0.2-1.3) 12/10/16 08:30 AST 24 U/L (14-36) 12/10/16 08:30 ALT 21 U/L (9-52) 12/10/16 08:30 Alkaline Phosphatase 110 U/L (38-126) 12/10/16 08:30 Total Protein 7.5 g/dL (6.3-8.3) 12/10/16 08:30 Albumin 3.5 g/dL (3.5-5.0) 12/10/16 08:30 Globulin 4.0 gm/dL (2.2-3.9) H 12/10/16 08:30 Albumin/Globulin Ratio 0.9 (1.0-2.1) L 12/10/16 08:30 Vitamin B12 693 pg/mL (239-931) 12/08/16 19:43 Folate 19.8 ng/mL 12/08/16 19:43 Urine Color Yellow (YELLOW) 12/08/16 20:29 Urine Clarity Hazy (Clear) 12/08/16 20:29 Urine pH 5.0 (5.0-8.0) 12/08/16 20:29 Ur Specific [place] 1.012 (1.003-1.030) 12/08/16 20:29 Urine Protein Negative mg/dL (NEGATIVE) 12/08/16 20:29 Urine Glucose (UA) 3+ mg/dL (Normal) H 12/08/16 20:29 Urine Ketones Negative mg/dL (NEGATIVE) 12/08/16 20:29 Urine Blood 1+ (NEGATIVE) H 12/08/16 20:29 Urine Nitrate Negative (NEGATIVE) 12/08/16 20:29 Urine Bilirubin Negative (NEGATIVE) 12/08/16 20:29 Urine Urobilinogen Normal mg/dL (0.2-1.0) 12/08/16 20:29 Ur Leukocyte Esterase 1+ Sea/uL (Negative) H 12/08/16 20:29 Urine WBC (Auto) 8 /hpf (0-5) H 12/08/16 20:29 Urine RBC (Auto) 7 /hpf (0-3) H 12/08/16 20:29 Ur Squamous Epith Cells < 1 /hpf (0-5) 12/08/16 20:29 Urine Bacteria Mod (<OCC) H 12/08/16 20:29 Urine HCG, Qual Negative (NEGATIVE) 12/09/16 04:30 Stool Occult Blood Negative (NEGATIVE) 12/08/16 19:39 Blood Type O POSITIVE 12/08/16 19:43 Antibody Screen Negative 12/08/16 19:43 - Hospital Course Hospital Course: On admission: Patient is a 51F with PMH HIV, DM, and iron deficiency anemia who presents to the ED for blood transfusion. Patient says she was at the clinic for a PAP smear and was told that she was severely anemic and needed to go to the ED for transfusion. Patient says her last menstrual period lasted longer than usual and was 8 days of heavy bleeding that ended 2 days ago. Patient says her periods are usually every 1.5 months, lasting 5-6 days, without heavy flow. She states that she has had some vaginal discharge but this is normal for her and denies change in color or odor. Patient says she has been feeling tired and has recently gained some weight. Patient also c/o dysuria but no frequency or urgency. Patient denies F/C, CP/SOB, Melena/Hematochezia, flank pain, AP/N/V/D/C. Patient was transfused two units of PRBCs which she tolerated well. The following morning she states she is feeling much better, Less dizzy and weak. Able to ambulate with no problem. A transvaginal US was done and was unremarkable. She had no other episodes of vaginal bleeding. Dr. Anderson was consulted and recommended a outpt endometrial biopsy. This was endorsed to the patient. She will follow up out patient to do this. Today the patient was able to ambulate with myself and Dr. Desir around the floor with no difficulties whatsoever. - Date & Time of H&P Date of H&P: 12/09/16 Time of H&P: 01:42 Discharge Exam - Head Exam Head Exam: ATRAUMATIC, NORMAL INSPECTION, NORMOCEPHALIC - Eye Exam Eye Exam: EOMI - ENT Exam ENT Exam: Mucous Membranes Moist - Respiratory Exam Respiratory Exam: NORMAL BREATHING PATTERN - Cardiovascular Exam Cardiovascular Exam: REGULAR RHYTHM - GI/Abdominal Exam GI & Abdominal Exam: Normal Bowel Sounds, Soft. absent: Distended, Tenderness - Neurological Exam Neurological exam: Alert, Oriented x3 - Psychiatric Exam Psychiatric exam: Normal Affect, Normal Mood - Skin Skin Exam: Dry, Intact, Normal Color, Warm Discharge Plan - Follow Up Plan Condition: STABLE Disposition: HOME/ ROUTINE Instructions: Nitrofurantoin Combination (By mouth), Urinary Tract Infection in Women (DC), Iron Deficiency Anemia (DC) Additional Instructions: From a Gynecologic standpoint, patient is stable and clear for discharge. She needs to follow up in the clinic for evaluation of her episode of vaginal bleeding. We recommend an endometrial biopsy as an outpatient. I will give the patient a copy of her transvaginal ultrasound. From a medical standpoint, patient is stable and clear for discharge. Patient should follow up in the clinic for her chronic medical problems. Please continue your home medications If symptoms return, please come back to the ER Thank you and take care. Referrals: Rupesh Anderson [Staff Provider] - <Balta Desir - Last Filed: 12/10/16 15:12> Provider - Provider Date of Admission: 12/08/16 20:20 Attending physician: Adams Eddy MD Hospital Course - Lab Results Lab Results: Micro Results 12/08/16 21:00 Urine Urine Culture - Final Escherichia Coli Most Recent Lab Values WBC 5.0 K/uL (4.8-10.8) 12/10/16 08:30 RBC 4.05 Mil/uL (3.80-5.20) 12/10/16 08:30 Hgb 8.8 g/dL (11.0-16.0) L 12/10/16 08:30 Hct 28.9 % (34.0-47.0) L 12/10/16 08:30 MCV 71.5 fL (81.0-99.0) L D 12/10/16 08:30 MCH 21.7 pg (27.0-31.0) L 12/10/16 08:30 MCHC 30.3 g/dL (33.0-37.0) L 12/10/16 08:30 RDW 25.2 % (11.5-14.5) H 12/10/16 08:30 Plt Count 301 K/uL (130-400) 12/10/16 08:30 MPV 8.1 fL (7.2-11.7) 12/10/16 08:30 Neut % (Auto) 49.5 % (50.0-75.0) L 12/10/16 08:30 Lymph % (Auto) 36.7 % (20.0-40.0) 12/10/16 08:30 [place] % (Auto) 8.8 % (0.0-10.0) 12/10/16 08:30 Eos % (Auto) 3.6 % (0.0-4.0) 12/10/16 08:30 Baso % (Auto) 1.4 % (0.0-2.0) 12/10/16 08:30 Neut # 2.5 K/uL (1.8-7.0) 12/10/16 08:30 Lymph # 1.8 K/uL (1.0-4.3) 12/10/16 08:30 [place] # 0.4 K/uL (0.0-0.8) 12/10/16 08:30 Eos # 0.2 K/uL (0.0-0.7) 12/10/16 08:30 Baso # 0.1 K/uL (0.0-0.2) 12/10/16 08:30 Differential Comment 12/08/16 18:55 PT 11.6 SECONDS (9.7-12.2) 12/08/16 19:39 INR 1.0 12/08/16 19:39 APTT 27 SECONDS (21-34) 12/08/16 19:39 Sodium 133 mmol/L (132-148) 12/10/16 08:30 Potassium 4.6 mmol/L (3.6-5.2) 12/10/16 08:30 Chloride 101 mmol/L (98-107) 12/10/16 08:30 Carbon Dioxide 23 mmol/L (22-30) 12/10/16 08:30 Anion Gap 14 (10-20) 12/10/16 08:30 BUN 18 mg/dL (7-17) H 12/10/16 08:30 Creatinine 0.8 MG/DL (0.7-1.2) 12/10/16 08:30 Est GFR ( Amer) > 60 12/10/16 08:30 Est GFR (Non-Af Amer) > 60 12/10/16 08:30 POC Glucose (mg/dL) 302 mg/dL (65-110) H 12/10/16 11:18 Random Glucose 326 mg/dL (65-105) H 12/10/16 08:30 Calcium 8.6 mg/dl (8.6-10.4) 12/10/16 08:30 Phosphorus 3.4 mg/dL (2.5-4.5) 12/10/16 08:30 Magnesium 1.6 mg/dL (1.6-2.3) 12/10/16 08:30 Iron 30 ug/dL (37-170) L 12/08/16 20:08 TIBC 362 ug/dL (250-450) 12/08/16 20:08 % Saturation 8 (20-55) L 12/08/16 20:08 Total Bilirubin 0.5 mg/dL (0.2-1.3) 12/10/16 08:30 AST 24 U/L (14-36) 12/10/16 08:30 ALT 21 U/L (9-52) 12/10/16 08:30 Alkaline Phosphatase 110 U/L (38-126) 12/10/16 08:30 Total Protein 7.5 g/dL (6.3-8.3) 12/10/16 08:30 Albumin 3.5 g/dL (3.5-5.0) 12/10/16 08:30 Globulin 4.0 gm/dL (2.2-3.9) H 12/10/16 08:30 Albumin/Globulin Ratio 0.9 (1.0-2.1) L 12/10/16 08:30 Vitamin B12 693 pg/mL (239-931) 12/08/16 19:43 Folate 19.8 ng/mL 12/08/16 19:43 Urine Color Yellow (YELLOW) 12/08/16 20:29 Urine Clarity Hazy (Clear) 12/08/16 20:29 Urine pH 5.0 (5.0-8.0) 12/08/16 20:29 Ur Specific [place] 1.012 (1.003-1.030) 12/08/16 20:29 Urine Protein Negative mg/dL (NEGATIVE) 12/08/16 20:29 Urine Glucose (UA) 3+ mg/dL (Normal) H 12/08/16 20:29 Urine Ketones Negative mg/dL (NEGATIVE) 12/08/16 20:29 Urine Blood 1+ (NEGATIVE) H 12/08/16 20:29 Urine Nitrate Negative (NEGATIVE) 12/08/16 20:29 Urine Bilirubin Negative (NEGATIVE) 12/08/16 20:29 Urine Urobilinogen Normal mg/dL (0.2-1.0) 12/08/16 20:29 Ur Leukocyte Esterase 1+ Sea/uL (Negative) H 12/08/16 20:29 Urine WBC (Auto) 8 /hpf (0-5) H 12/08/16 20:29 Urine RBC (Auto) 7 /hpf (0-3) H 12/08/16 20:29 Ur Squamous Epith Cells < 1 /hpf (0-5) 12/08/16 20:29 Urine Bacteria Mod (<OCC) H 12/08/16 20:29 Urine HCG, Qual Negative (NEGATIVE) 12/09/16 04:30 Stool Occult Blood Negative (NEGATIVE) 12/08/16 19:39 Blood Type O POSITIVE 12/08/16 19:43 Antibody Screen Negative 12/08/16 19:43 Attending/Attestation - Attestation I have personally seen and examined this patient.: Yes I have fully participated in the care of the patient.: Yes I have reviewed all pertinent clinical information, including history, physical exam and plan: Yes Notes (Text): 12/10/16 15:10 Medical Attending: Patient was seen and examined by me. As mentioned previously the patient had two units of PRBCs given. She felt much better and was kept an additional overnight to see if there would be any problems. She is doing ok. On exam we also had her walk around in the hallway with us and she was able to do so without becoming dizzy or light headed. She completed transvaginal ultrasound and this was negative for acute findings/ process. Also needs to take PO macrodantin for UTI. She understands she needs to follow up with her out patient PMD thank you Balta Desir
--- NOTE | 2016-12-11 12:35 | CARD ---
APPROVED REPORT EKG Measurement Heart [id number] <Conclusion> Normal sinus rhythm Normal ECG
== END 2016-12-10 13:15 | disposition home or self-care (01) | DRG 977 ==
LOC: C.ER 17:50 → C.3T 20:20
PROVIDERS: ADMIT Internal Medicine; ATTEND Internal Medicine
PROC: 30233N1 Transfusion of Nonautologous Red Blood Cells into Peripheral Vein, Percutaneous Approach (ICD-10-PCS; principal; 2016-12-08)
DX: B20 Human immunodeficiency virus [HIV] disease (principal); N39.0 Urinary tract infection, site not specified; D50.9 Iron deficiency anemia, unspecified; E11.9 Type 2 diabetes mellitus without complications; N92.0 Excessive and frequent menstruation with regular cycle; Z87.891 Personal history of nicotine dependence; Z83.3 Family history of diabetes mellitus; Z79.4 Long term (current) use of insulin

== ENCOUNTER 2017-06-05 17:15 | Emergency (ER) | payer MEDICARE ==
[2017-06-05 17:15] VITALS: BMI 25.4
[2017-06-05 17:42] VITALS: BP 146/80; PULSE 80; RESP 18; TEMP 98; O2SAT 100
--- NOTE | 2017-06-05 18:29 | C.PDOC ---
History Of Present Illness CC: "hoarseness" HPI: 52 year old female with past medical history of HIV and diabetes type II who presents to the ER for hoarseness that started today. 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 She states she does see her infectious disease doctor regularly the last time was 2 months ago. She states she tried to go see her doctor today but they were closed. She denies sore throat, fever, chills, body aches, nausea, vomiting, diarrhea or constipation. PMD: [facility] Past Medical History: HIV and diabetes type II Medications: [place]uv[place], Prezista, Novolog, Levamir Allergies: Bactrim - rash and swelling Time Seen by Provider: 06/05/17 17:53 Chief Complaint (Nursing): ENT Problem Past Medical History Vital Signs: Last Vital Signs Temp 98 F 06/05/17 17:40 Pulse 80 06/05/17 17:40 Resp 18 06/05/17 17:40 BP 146/80 06/05/17 17:40 Pulse Ox 100 06/05/17 18:33 - Medical History PMH: Anemia (FE DEFFICIENCY), Asthma, Depression, Diabetes, HIV, Sexually Transmitted Disease (HIV) Denies: Anxiety, Bipolar Disorder, Bronchitis, COPD, Emphysema, Hyperthyroidism, Hypothyroidism, Paranoia, Pneumonia, Post Traumatic Stress Disorder, Pulmonary Embolism, Chronic Kidney Disease, Schizophrenia, Sickle Cell Disease, Sleep Apnea Surgical History: Denies: Appendectomy, CABG, Carotid Endarterectomy, Cholecystectomy, Coronary Stent, Tonsillectomy - [facility] TRANSFUSE NONAUT RED BLOOD CELLS IN PERIPH VEIN, PERC (02/06/17) Family History: States: Unknown Family Hx - Social History Hx Tobacco Use: No Hx Alcohol Use: No (drinks socially) Hx Substance Use: Yes (marijuana) - Immunization History Hx Tetanus Toxoid Vaccination: Yes Hx Influenza Vaccination: Yes Hx Pneumococcal Vaccination: Yes Review Of Systems Constitutional: Negative for: Fever, Chills ENT: Positive for: Other (throat feels dry; hoarseness). Negative for: Ear Pain , Nose Discharge, Nose Congestion, Throat Pain, Throat Swelling Cardiovascular: Negative for: Chest Pain, Palpitations Respiratory: Negative for: Cough, Shortness of Breath Gastrointestinal: Negative for: Nausea, Vomiting, Abdominal Pain, Diarrhea, Constipation Genitourinary: Negative for: Dysuria Physical Exam - Physical Exam Appears: Well, Non-toxic, No Acute Distress Skin: Normal Color Head: Atraumatic, Normacephalic Eye(s): bilateral: Normal Inspection, PERRL, EOMI Ear(s): Bilateral: Normal Nose: Normal Oral Mucosa: Moist Lips: Normal Appearing Throat: Normal, No Erythema, No Exudate, No Drooling Lymphatic: No Adenopathy Cardiovascular: Rhythm Regular Respiratory: Normal Breath Sounds, No Decreased Breath Sounds, No Accessory Muscle Use, No Rhonchi, No Stridor, No Wheezing Gastrointestinal/Abdominal: Normal Exam, Bowel Sounds (normal), Soft, No Tenderness Neurological/Psych: Oriented x3, Normal Speech, Normal Cognition ED Course And Treatment O2 Sat by Pulse Oximetry: 100 Medical Decision Making Medical Decision Making: Patient to follow up with PMD at the [facility] 1-2 weeks. Patient to continue symptomatic treatments: Cepacol and Chloraseptic spray for sore throat relief. Also Discussed with patient to drink plenty of fluids, tea and rest. Disposition Discussed With : Rosalina Beaulieu Doctor Will See Patient In The: ED - Disposition Disposition: HOME/ ROUTINE Disposition Time: 18:43 Condition: GOOD Additional Instructions: Patient to follow up with PMD at the [facility] in [place] 1-2 weeks. Patient to continue symptomatic treatments: Cepacol and Chloraseptic spray for sore throat relief. Instructions: Laryngitis Forms: [facility] (Yi), Work Excuse Print Language: MACEDONIAN - Clinical Impression Clinical Impression: Viral laryngitis Clinical Impression: (Ruled Out): Viral labyrinthitis - PA / CORPORATE STRATEGY INTERN / Resident Statement / has reviewed & agrees with the documentation as recorded. / has examined the patient and agrees with the treatment plan.
== END 2017-06-05 18:39 | disposition home or self-care (01) ==
LOC: C.ER 17:15
DX: J04.0 Acute laryngitis (principal)